=== PATIENT | male | born 1980 | race Hispanic/Latino ===

== ENCOUNTER 2020-04-08 17:55 | Observation (INO) | payer BC ==
[2020-04-08] MEDS ORDERED: MORPHINE SULFATE INJ 10 MG/ML VIAL IV ONE (18:11)
[2020-04-08] MEDS ORDERED: SODIUM CHLORIDE 0.9% 1000ML 2,000 ML IVS ONE (18:11)
[2020-04-08] MEDS ORDERED: ONDANSETRON INJ 4 MG/2 ML VIAL IV ONE (18:11)
--- NOTE | 2020-04-08 18:15 | ED.PDOC ---
History of Present Illness - General Chief Complaint: General Stated Complaint: weakness,poss dehydration Time Seen by Provider: 04/08/20 18:10 Additional Information: Patient is a 39-year-old male who presents to the ED with chief complaint of muscle cramps. 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 Patient thinks his symptoms may be from insufficient hydration today. Patient denies chest pain, shortness of breath, fever, chills. He has mild abdominal cramping. Patient has no other complaints at this time. - History of Present Illness Allergies/Adverse Reactions: Allergies NO KNOWN ALLERGY Allergy (Verified 04/08/20 18:13) Review of Systems - Review of Systems Constitutional: States: weakness. Denies: chills, fever EENTM: States: no symptoms reported Respiratory: States: no symptoms reported. Denies: cough, short of breath Cardiology: States: no symptoms reported. Denies: chest pain, palpitations Gastrointestinal/Abdominal: States: nausea Genitourinary: Denies: dysuria Musculoskeletal: States: muscle pain. Denies: joint pain, neck pain Skin: Denies: rash Neurological: States: no symptoms reported All other Systems: Reviewed and Negative Past Medical History (General) - Patient Medical History Hx Stroke: No Hx Congestive Heart Failure: No Hx Hypertension: Yes Hx Diabetes: No Surgical History: no surgical history - Vaccination History Hx Influenza Vaccination: No - Social History Hx Tobacco Use: Yes Family Medical History - Family History Father Family History: Unknown Living Status: Unknown Physical Exam - Physical Exam General Appearance: Alert, Other - 3Patient is in mild distress sitting on the edge of the bed not wanting to lay back due to cramping. He appears clinically dry. 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 04/08/20 19:16 Patient reassessed and is feeling much better following IV fluids. His creatinine is elevated at 2.95 and this is almost certainly prerenal from severe dehydration. His CPK is not particularly elevated and patient is not in rhabdomyolysis. Patient's lactate is elevated but he has no symptoms of infection and I believe this is reactive and will clear with fluids. I have spoken with Rosendo Davis, hospitalist, who accepts patient for admission. Patient is comfortable and stable at this time. Departure - Departure Clinical Impression: Acute renal insufficiency, Dehydration Disposition: Admit Patient Condition: Fair Decision To Admit - Decistion To Admit Decision to Admit Date: 04/08/20 Decision to Admit Time: 19:21
[2020-04-08] MEDS ORDERED: SODIUM CHLORIDE 0.9% (FLUSH) 10 ML SYG IV PRN (19:29)
[2020-04-08] MEDS ORDERED: IV SET AND CAP CHANGE INJ INJ SCH (19:30)
--- NOTE | 2020-04-08 19:52 | HP ---
SUPERVISING PHYSICIAN: Brown No MD CHIEF COMPLAINT: Muscle cramps. HISTORY OF PRESENT ILLNESS: This is a 39-year-old male patient who came into the Emergency Room around 6 o'clock due to some muscle cramps. 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 He states he may not have had enough hydration. He denies any chest pain, shortness of breath, no fever or chills. He has not been around anybody that has been ill. In the ER, he had some labs done which showed white blood cell count 13.8, hemoglobin 16.0, platelet count 280. Chemistry showed elevated BUN of 23, creatinine 2.95, glucose 135, lactic acid 2.7, bilirubin 1.5, AST 57, ALT 77, CK 391. He was given 2 liters in the ER. Given his acute kidney injury and likely heat exhaustion, he was referred for admission. At the time of admission, the patient is alert and oriented. He does not appear to be in any active distress. PAST MEDICAL HISTORY: 1. Hypertension. PAST SURGICAL HISTORY: None. MEDICATIONS: 1. Lisinopril 20 mg daily for blood pressure. ALLERGIES: NO KNOWN DRUG ALLERGIES. FAMILY HISTORY: Positive for hypertension, hyperlipidemia and diabetes. SOCIAL HISTORY: The patient smokes occasionally. He drinks some beer on the weekends. No illegal drugs. REVIEW OF SYSTEMS: CONSTITUTIONAL: No fever or chills. No recent weight loss or weight gain. Positive for weakness. HEENT: No headaches, vision changes, ear pain, nasal congestion or throat pain. RESPIRATORY: No cough, hemoptysis or pleuritic chest pain. CARDIOVASCULAR: No chest pain, palpitations or peripheral edema. GASTROINTESTINAL: Positive for nausea. No vomiting, diarrhea, constipation or abdominal pain. GENITOURINARY: No dysuria, frequency or flank pain. MUSCULOSKELETAL: Positive for muscle cramps. No joint pain or joint swelling. ENDOCRINE: No polydipsia, polyuria or polyphagia. No heat or cold intolerance. HEMATOLOGIC: No easy bruising and no transfusion reaction. NEUROLOGIC: No syncope, paresthesias or seizures. PHYSICAL EXAMINATION: VITAL SIGNS: Blood pressure 113/66, heart rate 95, respiratory rate 18, temperature 97.6, oxygen saturation 96%. GENERAL: Mr. Bangura is a 39-year-old male patient in no active distress. NEUROLOGIC: The patient is alert and oriented. LUNGS: Clear to auscultation bilaterally. CARDIOVASCULAR: Regular rate and rhythm. Normal S1, S2. ABDOMEN: Soft. Positive bowel sounds. GENITOURINARY: Deferred. EXTREMITIES: Lower extremities with no edema. Pulses 2+. Capillary refill is less than 2 seconds. LABORATORY: Labs are as discussed in history of present illness. ASSESSMENT: 1. Heat exhaustion. 2. Acute kidney injury. 3. Severe dehydration. 4. Hypertension. 5. Hyperglycemia. PLAN: At this time, the patient will be admitted for rehydration. I am going to hold his lisinopril as this could be contributing to some renal insufficiency. I am going to check a hemoglobin A1c while he is here as well. He states he had followup with his primary care physician last Tuesday and they added something to his medicine, but he did not know what. I am afraid that they added HCTZ to his lisinopril for his blood pressure, but that would not be good for his job given that it would further dehydrate him. I will monitor his blood pressure while he is here and give him an ARB instead of an BLAYNE if warranted. We will recheck labs in the morning and discharge if stable. #[id number] [facility]
[2020-04-08] MEDS: LACTATED RINGERS 1,000 ML IVS PRN (20:54)
[2020-04-09] MEDS: LACTATED RINGERS 1,000 ML IVS PRN (03:41)
--- NOTE | 2020-04-09 10:29 | DS ---
SUPERVISING PHYSICIAN: Brown No MD ADMISSION DIAGNOSIS: 1. Heat exhaustion. 2. Acute kidney injury. 3. Severe dehydration. 4. Hypertension. 5. Hyperglycemia. DISCHARGE DIAGNOSIS: 1. Heat exhaustion. 2. Acute kidney injury. 3. Severe dehydration. 4. Hypertension. 5. Hyperglycemia. HOSPITAL COURSE: This is a 39-year-old male patient who came to the Emergency Room with muscle cramping. 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 He had some muscle weakness, aches and nausea that started in the early afternoon. In the ER, his labs showed elevated white count of 13.8 as well as elevated BUN and creatinine of 23 and 2.95. Glucose was elevated at 135. He was given 2 liters in the ER and then referred for admission. He was given Lactated Ringers overnight at 150 cc an hour. The day of discharge this morning, he feels much better. White count is resolved with no left shift. He does have BUN 22, creatinine 1.23 this morning. I did go ahead and check his hemoglobin A1c because of the hyperglycemia and it was 5.8. He will be discharged today in stable condition. He has been advised not to work today and resume work tomorrow, but he needs to stay hydrated. I also discussed with him his blood pressure medications. Lisinopril on occasion can cause some kidney issues. I suggested he get that changed to an ARB. Additionally, he stated his doctor changed his lisinopril to a combination medicine, but did not know what the name. I assume it was changed to lisinopril/HCTZ and given his line of work, I do not recommend that and I told him that as well. He can go home on a regular diet, activity as tolerated. #[id number] [facility]
[2020-04-09 11:18] VITALS: BP 146/82; TEMP 98.4; O2SAT 94
== END 2020-04-09 11:57 | disposition home or self-care (01) ==
LOC: ER 17:55 → MS 19:51
PROVIDERS: ADMIT Nurse Practitioner; ATTEND Nurse Practitioner
DX: T67.5XXA Heat exhaustion, unspecified, initial encounter (principal); N17.9 Acute kidney failure, unspecified; E86.0 Dehydration; I10 Essential (primary) hypertension; R73.9 Hyperglycemia, unspecified; F17.200 Nicotine dependence, unspecified, uncomplicated; Z79.899 Other long term (current) drug therapy; X30.XXXA Exposure to excessive natural heat, initial encounter; Y93.89 Activity, other specified; Y92.65 Oil rig as the place of occurrence of the external cause; Y99.0 Civilian activity done for income or pay
CPT/HCPCS: 96361 ×2; 96374; 96375; J2270; J2405; J7030; J7120 ×2; 80048; 80053; 83036; 36415 ×2; 85025 ×2; 82550; 83605; 99285; 93005